=== PATIENT | female | born 1995 | race Caucasian/White ===

== ENCOUNTER 2023-11-21 16:43 | Emergency (ER) | payer OTHER, MEDICAID ==
[~2023-11-21] VITALS: Ht 167.6 cm; Wt 81.0 kg
[2023-11-21 16:54] VITALS: O2SAT 100
[2023-11-21] MEDS: IBUPROFEN 600MG TABLET PO ONE (18:54)
[2023-11-21] MEDS: TRAMADOL 50MG TABLET PO ONE (18:54)
[2023-11-21] MEDS ORDERED: CYCL5TAB MT (19:35)
[2023-11-21] MEDS ORDERED: IBUP-2030 MT (19:35)
[2023-11-21 20:01] VITALS: BP 128/67; PULSE 88; RESP 18; TEMP 98.5
== END 2023-11-21 20:20 | disposition home or self-care (01) ==
LOC: ER 20:17
DX: S16.1XXA Strain of muscle, fascia and tendon at neck level, initial encounter (principal); S20.219A Contusion of unspecified front wall of thorax, initial encounter; S33.5XXA Sprain of ligaments of lumbar spine, initial encounter; V49.49XA Driver injured in collision with other motor vehicles in traffic accident, initial encounter; Y93.89 Activity, other specified; Y92.89 Other specified places as the place of occurrence of the external cause; Y99.8 Other external cause status
CPT/HCPCS: 71045; 72100; 93005; 99284